=== PATIENT | female | born 1995 | race Caucasian/White ===

== ENCOUNTER 2022-01-15 12:54 | Outpatient (CLI) | payer BC, SELFPAY ==
--- NOTE | 2022-01-15 13:00 | CRLHL7_ITS ---
For Patients: As a result of the Century Cures Act, medical imaging exams and procedure reports are released immediately into your electronic medical record. You may view this report before your referring provider. If you have questions, please contact your health care provider. INDICATION: LEFT LOW BACK PAIN, HX Ovarian CYSTS COMPARISON: 02/16/21 TECHNIQUE: 2D nagel scale and color Doppler images were acquired of the pelvis using a transabdominal and transvaginal approach. FINDINGS: Sonographic images demonstrate a normal size and smooth outer contour of the uterus. Uterus measures 7.2 cm in length by 4.3 cm in AP diameter by 4.7 cm in transverse dimension. The myometrium has a normal uniform echotexture. The endometrial lining appears normal and measures 6 mm in composite thickness. The right ovary measures 3.5 x 2.3 x 2.3 cm in size and the left ovary measures 8.0 x 7.3 x 7.4 cm. The ovaries demonstrate normal arterial and venous blood flow on color Doppler analysis. There are no suspicious fluid collections within the cul-de-sac. There is a complex cystic lesion within the left ovary measuring 7.7 x 5.2 x 5.6 cm several septations are present measuring up to 3.3 millimeters. Previously, this cyst measured 3.9 x 4.2 x 4.5 cm. An additional hypoechoic cyst is present within the left ovary measuring 2.5 x 1.9 x 2.1 cm. Similar hypoechoic cyst within the right ovary is present measuring 1.8 x 1.4 x 1.4 cm. IMPRESSION: Cysts within each ovary : Increased size of complex septated left ovarian cyst, now measuring 7.7 x 5.2 x 5.6 cm. The internal septations are mildly thickened measuring up to 3.3 millimeters. No ovarian torsion. Additional hypoechoic cysts measuring 2.5 cm on the left and 1.8 cm on the right, hemorrhagic cysts versus endometriomas. Dictated by Royce Estes MD @ 01/16/2022 10:01:36 AM (Electronically Signed)
== END 2022-01-15 12:55 | disposition home or self-care (01) ==
PROVIDERS: PCP Family Medicine; Visit Provider Family Medicine
DX: M54.9 Dorsalgia, unspecified (principal); N83.202 Unspecified ovarian cyst, left side; R10.2 Pelvic and perineal pain
CPT/HCPCS: 76830; 76856; 93976